=== PATIENT | male | born 1935 | race Caucasian/White ===

== ENCOUNTER 2017-06-18 09:47 | Observation (INO) | payer MEDICARE, OTHER ==
[2017-06-18 11:35] LABS: Troponin I 0.119 ng/mL (< 0.028)
[2017-06-18] MEDS ORDERED: HYDROcodone/Acetaminophen 5/325 mg Tablet PO PRN (12:06)
[2017-06-18] MEDS ORDERED: Acetaminophen 325 MG TAB PO PRN (12:06)
[2017-06-18] MEDS ORDERED: Sodium Chloride 0.65% Nasal 44 ML BOT EA NARE PRN (12:06)
[2017-06-18] MEDS ORDERED: Eucerin (Mineral Oil/Petrolatum,White) 30 gm Jar TOP PRN (12:06)
[2017-06-18] MEDS ORDERED: Ondansetron HCl/PF 4 MG/2 ML Vial IVP PRN (12:06)
[2017-06-18] MEDS ORDERED: Milk Of Magnesia 30 ML UDCUP PO PRN (12:06)
[2017-06-18] MEDS ORDERED: Zolpidem Tartrate 5 MG TAB PO PRN (12:06)
[2017-06-18] MEDS ORDERED: Artificial Tears 18 DROP/0.9 ML EA EYE PRN (12:06)
[2017-06-18] MEDS ORDERED: Mag-Al 1200 mg/1200 mg/30 ML UDCUP PO PRN (12:06)
[2017-06-18] MEDS ORDERED: Diabetic Tussin 200 MG/10 ML UDCUP PO PRN (12:06)
[2017-06-18] MEDS ORDERED: Loratadine 10 MG TAB PO PRN (12:06)
[2017-06-18] MEDS ORDERED: Ondansetron ODT 4 MG TAB PO PRN (12:06)
[2017-06-18] MEDS ORDERED: Loperamide HCl 2 MG CAP PO PRN (12:06)
[2017-06-18] MEDS ORDERED: Chloraseptic Spray 180 ml Bottle PO PRN (12:06)
[2017-06-18] MEDS ORDERED: Nitroglycerin 0.4 MG TAB (25 Tab Bottle) SL PRN (12:06)
[2017-06-18] MEDS ORDERED: hydrALAZINE 20 MG/ML VIAL SLOW IVP PRN (12:06)
[2017-06-18] MEDS ORDERED: Senokot 8.6 MG TAB PO PRN (12:06)
[2017-06-18 12:19] VITALS: BMI 27.2
--- NOTE | 2017-06-18 13:09 | HP ---
PRIMARY CARE PHYSICIAN: in [place]. REASON FOR ADMISSION: Transfer from [facility] for angina and elevated troponin. HISTORY OF PRESENT ILLNESS: An 82-year-old male who has underlying history of coronary artery disease, required CABG in the past as well as aortic valve replacement who is suffering from chronic stable angina for the last 6-7 months. This patient reports that he is following Dr. Dixon and Dr. Dixon did cardiac catheterization at [facility] about 3 weeks ago. At that time , patient was found with a new blockage in [place] coronary vessels with a patent graft as per family member. The patient also had recently stress test which showed normal EF. During that admission at [facility], after cardiac catheterization, his Imdur was increased to 60 mg p.o. daily and that was controlling his angina up until today. Today, he was coming from his home to [facility] for routine lab testing done. On the way, he was having severe substernal pain, heaviness in nature associated with nausea as well as radiating pain to back. It was about 8 /10 in intensity and that is why patient's son worried about heart attack and patient was taken to local [facility] where patient had electrocardiogram which did not show any STEMI, but patient had a slightly elevated indeterminant troponin and subsequently patient was planned for transfer to our hospital. This patient does report that he has followup appointment with Dr. Dixon on this Sunday for plan of care regarding his blockage. In the emergency room, this patient was given nitroglycerin, nitropatch and aspirin. After that, patient's pain completely subsided and when I saw this patient in our emergency room, he was pain free. REVIEW OF SYSTEMS: The following complete review of systems was negative, unless otherwise mentioned in the HPI or below: Constitutional: Weight loss or gain, ability to conduct usual activities. Skin: Rash, itching. Eyes: Double vision, pain. ENT/Mouth: Nose bleeding, neck stiffness, pain, tenderness. Cardiovascular: Palpitations, dyspnea on exertion, orthopnea. Respiratory: Shortness of breath, wheezing, cough, hemoptysis, fever or night sweats. Gastrointestinal: Poor appetite, abdominal pain, heartburn, nausea, vomiting, constipation, or diarrhea. Genitourinary: Urgency, frequency, dysuria, nocturia. Musculoskeletal: Pain, swelling. Neurologic/Psychiatric: Anxiety, depression. Allergy/Immunologic: Skin rash, bleeding tendency. Please see my HPI for pertinent positive and negative. All other review of systems reviewed and negative except as mentioned in the HPI. ALLERGIES: CODEINE SULFATE. CURRENT HOME MEDICATIONS: Lisinopril 20 mg p.o. daily, Plavix 75 mg p.o. daily , metoprolol 25 mg p.o. daily, Imdur 60 mg p.o. daily, Lipitor 40 mg p.o. daily , Zoloft 25 mg p.o. daily, multivitamin 1 tablet p.o. daily, aspirin 81 mg p.o. daily. PAST MEDICAL HISTORY: Coronary artery disease, required CABG in the past valvular heart disease required aortic valve replacement for aortic regurgitation, history of sick sinus syndrome, required pacemaker placement, hypertension, dyslipidemia. PAST PSYCHIATRIC HISTORY: Anxiety and depression. PAST SURGICAL HISTORY: Aortic valve replacement, CABG x3 vessel, cholecystectomy, hernia repair, right knee surgery, cardiac catheterization. FAMILY HISTORY: No strong family history of CAD, CVA or cancer. SOCIAL HISTORY: The patient drinks alcohol socially. He lives at home by himself. No history of tobacco, alcohol or illicit drug abuse. EMERGENCY ROOM COURSE: At [facility], patient is given aspirin 324 mg and nitropatch. PHYSICAL EXAMINATION: VITAL SIGNS: On arrival, blood pressure 127/68, pulse 63, respiratory rate 16, temperature 98.2, saturation 95% on room air, weight 83.9 kilograms. GENERAL: The patient is currently alert, awake, no acute distress. HEENT: Normocephalic, atraumatic. Eyes: Pupils round, reactive to light. Extraocular muscles intact. ENT: Oropharynx within normal limits. Moist mucous membranes, no oral lesion, no pharyngeal erythema, no exudate. NECK: Supple, no JVD, no thyromegaly, no carotid bruit, no jugular venous distention. LUNGS: Clear to auscultation without any rhonchi or rales. CARDIOVASCULAR: S1, S2 regular. No murmur, no gallop, no rub. CHEST WALL: The sternotomy scar noted as well as pacemaker in place. No point tenderness, no chest wall tenderness. ABDOMEN: Soft, bowel sounds present, nontender, nondistended. No organomegaly , no mass, no suprapubic tenderness. BACK: Unremarkable, no CVA tenderness. EXTREMITIES: Upper extremity passive movement of all joints are normal. Lower extremity, no edema. Good peripheral pulsation. SKIN: No skin rash. HEMATOLOGICAL: No lymphadenopathy. PSYCHIATRIC: Normal affect. SIGNIFICANT LABS: 1. EKG showing pacemaker rhythm. Chest x-ray based on my review, no acute cardiopulmonary process, borderline cardiomegaly, pulmonary vascular congestion. 2. CBC: WBC 4.0, hemoglobin 13.5, platelets 94. BMP shows sodium 139, potassium 3.9, chloride 107, carbon dioxide 23, BUN 24, creatinine 0.89, glucose 113, calcium 9.0. 3. LFT: AST 34, ALT 34, alkaline phosphatase 87, albumin 4.0. CK-MB 2.3, troponin I 0.112, then 0.119. 3. D-dimer 0.32. ASSESSMENT AND PLAN: 1. Chronic stable angina. This patient gets recurrent anginal pain. This is normally anginal pain for him and subsides in 3-5 minutes after nitroglycerin, but this time intensity of pain was more severe as well as for more prolonged required emergency room visit. Currently, patient has indeterminate troponin. The patient's EKG is pacemaker rhythm. Patient's family member requesting cardiology evaluation given he already has appointment with Dr. Dixon on coming Sunday. The patient already had cardiac catheterization done 3 weeks ago and found with a new blockage. We will consult Cardiology and further decision will defer to them. Meanwhile, we will continue the aspirin 81 mg p.o. daily, Plavix 75 mg p.o. daily and nitropatch q.8 hourly, Lipitor 40 mg p.o. at bedtime. 2. Check lipid profile for risk stratification and monitor on telemetry floor. 3. Coronary artery disease, required CABG x3 in past. The patient is currently on optimal medical therapy with aspirin, Plavix, beta malcolm, AKBAR inhibitor, and statin therapy. Cardiology is consulted and we will defer further plan to them. 4. Dyslipidemia. We will check lipid profile and continue Lipitor 40 mg p.o. at bedtime. 5. Hypertension. Continue Lisinopril 20 mg p.o. daily, metoprolol 25 mg p.o. daily and nitropatch q.8 hourly. Upon discharge, we will resume Imdur 60 mg p.o. daily. 6. Anxiety and depression. Continue Zoloft 25 mg p.o. daily. 7. Thrombocytopenia. Etiology uncertain, but we will defer outpatient evaluation if needed. 8. Macrocytic anemia. We will start folic acid and vitamin B12 therapy while in hospital. 9. Elevated troponin. We will do serial cardiac enzymes x3 and likely related with angina. Cardiology already consulted. 10. Deep venous thrombosis prophylaxis not needed because we are expecting discharge in 24 hours. 11. Gastrointestinal prophylaxis, Pepcid 20 mg p.o. b.i.d. 12. Code status: The patient is FULL CODE. Patient's daughter is surrogate decision maker. Disposition plan based on clinical course. We are expecting patient's stay in hospital 24 hours. Further decision will defer to Cardiology. MTDD
--- NOTE | 2017-06-18 13:56 | CON ---
DATE OF CONSULTATION: 06/18/2017 REASON FOR CONSULTATION: Recurrent chest pressure HISTORY OF PRESENT ILLNESS: Mr. Brett Puri is a very pleasant 82-year-old patient of Dr. Mo lobo. He has a history of coronary bypass grafting in 2016. The patient has had some chest pressur e intermittently. He has had chest soreness associated with the sternum, but that is really a differ ent sensation from the pressure he gets intermittently. He said sometimes as soon as he lays down, h e gets pressure in his chest, but other times it occurs randomly and sporadically. He did [facility] and was found to have patent internal mammary to the LAD, patent diagonal graft, patent saphenous vein graft to the distal circumflex. From reading the notes, it sounds like there is some of the proximal circumflex that ma y not be ideally perfused, although it looked like it was a suboptimal situation for interventional t herapy. He was doing well today, but he started having chest pressure at rest despite medications. He came here to the hospital and received additional medication and is now pain free now. He feels w ell now. MEDICATIONS: 1. Aspirin. 2. Metoprolol. 3. Isosorbide. 4. Atorvastatin. 5. Lisinopril. 6. Plavix. 7. He does not have sublingual nitroglycerin if needed. ALLERGIES: None known. SOCIAL HISTORY: No alcohol or tobacco. He has a family who is very supportive of him. REVIEW OF SYSTEMS: CONSTITUTIONAL: No significant weight gain or loss. VISION: No changes. HEARING: No changes. PULMONARY: No cough or wheezing. GASTROINTESTINAL: No nausea, vomiting, diarrhea. SKIN: No rashes. NEUROLOGIC: No unilateral weakness or numbness. PSYCHIATRIC: No unusual depression or anxiety. HEMATOLOGIC: No unusual bruising. GENITOURINARY: No burning with urination. PHYSICAL EXAMINATION: GENERAL: This is a pleasant elderly gentleman, 82 years of age, resting comfortably now, no complain ts. VITAL SIGNS: Blood pressure 136/74, pulse 70 regular. HEENT: Eyes; sclerae nonicteric. Mouth; mucous membranes moist. NECK: Supple, no lymphadenopathy. LUNGS: Clear, no wheezing, rales or rhonchi. CARDIAC: Normal S1, normal S2. There is no murmur, rub or gallop. ABDOMEN: Soft, nontender. EXTREMITIES: No clubbing or cyanosis. There is no edema. The pedal pulses on the right foot are normal, but the left are diminished. LABORATORY AND X-RAY FINDINGS: EKG; it is an atrial paced ventricular paced rhythm. ASSESSMENT: 1. Previous coronary artery bypass grafting with recurrent anginal episodes, patent graft to the lef t anterior descending, diagonal and distal circumflex. 2. Dual chamber pacemaker in place. 3. Peripheral vascular disease with mild symptoms, some left lower extremity discomfort, but not exe rtional. 4. Hypercholesterolemia on treatment. PLAN: 1. Continue current medical regimen. 2. We will add Ranexa. 3. Dr. Dixon to review the case to see whether any other intervention may be helpful. It would lik sowmya be helpful to add if needed nitrates if he has an anginal episode.
[2017-06-18] MEDS: Nitroglycerin 2% Ointment 1 INCH/1 GM Packet TOP SCH ×2 (14:26→22:35)
[2017-06-18 14:40] LABS: Troponin I 0.141 ng/mL (< 0.028)
[2017-06-18 18:05] LABS: Troponin I 0.137 ng/mL (< 0.028)
[2017-06-18] MEDS: Famotidine 20 MG TAB PO SCH (20:46)
[2017-06-18] MEDS ORDERED: Atorvastatin Calcium 40 MG TAB PO SCH (21:00)
[2017-06-19 05:22] LABS: Anion Gap 10 mmol/L (10-20); BUN (Urea Nitrogen) 18 mg/dL (8.4-25.7); Calc. Creatinine Clearance 79 mL/min (70-130); Calcium 9.1 mg/dL (7.8-10.44); Carbon Dioxide 27 mmol/L (23-31); Cardiac Risk 2.4 (Less than 4.5); Chloride 105 mmol/L (98-107); Cholesterol 73 mg/dl (< 200 Desired); Estimated GFR-MDRD 86; Glucose 107 mg/dL (83-110); HDL Cholesterol 30 mg/dL (>60 Neg Risk); LDL Cholesterol, Calculated 30 mg/dL; Potassium 4.3 mmol/L (3.5-5.1); Sodium 138 mmol/L (136-145); Triglycerides 66 mg/dL (Less than 150)
[2017-06-19 05:38] LABS: #Eosinphils 0.2 thou/uL (0.0-0.7); #Lymphocytes 1.3 thou/uL (1.20-3.40); #Monocytes 0.4 thou/uL (0.11-0.59); #Neutrophils 2.4 thou/uL (1.40-6.50); %Basophils 0.3 % (0.0-1.0); %Lymphocytes 30.5 % (21.0-51.0); %Monocytes 8.4 % (0.0-10.0); %Neutrophils 56.9 % (42.0-75.0); Hemoglobin 12.5 g/dL (14.0-18.0); MDiff Complete? YES; Macrocytosis SLIGHT = 6-15 cells (100X) (0-5/hpf); Mean Corpuscular HGB CONC 34.7 g/dL (32.0-36.0); PLT Morphology Comment Appears Decreased; Platelet Count 100 thou/uL (130-400); RBC Distribution Width 12.8 % (11.5-14.5); Red Blood Cell (RBC) Count 3.59 mill/uL (4.70-6.10); White Blood Cell (WBC) Count 4.1 thou/uL (4.8-10.8)
[2017-06-19] MEDS: Nitroglycerin 2% Ointment 1 INCH/1 GM Packet TOP SCH ×3 (06:13→14:41)
[2017-06-19] MEDS: Famotidine 20 MG TAB PO SCH (08:48)
[2017-06-19] MEDS ORDERED: Clopidogrel Bisulfate 75 MG TAB PO SCH (09:00)
[2017-06-19] MEDS ORDERED: Lisinopril 20 MG TAB PO SCH (09:00)
[2017-06-19] MEDS ORDERED: Metoprolol Tartrate 25 MG TAB PO SCH (09:00)
--- NOTE | 2017-06-19 09:02 | PDOC.PN ---
- Subjective Encounter Start Date: 06/19/17 Encounter Start Time: 07:30 -: old records requested/rev Patient seen and examined. No new complaints. No overnight events - Objective Resuscitation Status: Resuscitation Status FULL:Full Resuscitation MAR Reviewed: Yes Vital Signs & Weight: Vital Signs (12 hours) Temp Pulse Resp BP Pulse Ox 06/19/17 08:00 98.3 F 68 16 06/19/17 07:43 98.3 F 68 16 137/72 95 06/19/17 03:56 98.3 F 81 20 175/82 H 96 Weight Weight 183 lb 8 oz I&O: 06/18/17 06/19/17 06/20/17 06:59 06:59 06:59 Intake Total 1005 Output Total 2 Balance 1003 Result Diagrams: 06/19/17 04:49 06/19/17 04:49 EKG Reviewed by me: Yes (nsr) Phys Exam - Physical Examination Constitutional: NAD HEENT: PERRLA, moist MMs, sclera anicteric Neck: no JVD, supple Respiratory: no wheezing, no rales, no rhonchi Cardiovascular: RRR, no significant murmur, no rub Gastrointestinal: soft, non-tender, no distention, positive bowel sounds Musculoskeletal: no edema, pulses present Neurological: non-focal, normal sensation, moves all 4 limbs Psychiatric: normal affect, A&O x 3 Skin: no rash, normal turgor Dx/Plan (1) Angina pectoris Code(s): I20.9 - ANGINA PECTORIS, UNSPECIFIED Status: Acute (2) Elevated troponin Code(s): R74.8 - ABNORMAL LEVELS OF OTHER SERUM ENZYMES Status: Acute (3) Anxiety and depression Code(s): F41.8 - OTHER SPECIFIED ANXIETY DISORDERS Status: Chronic (4) CAD (coronary artery disease) Code(s): I25.10 - ATHSCL HEART DISEASE OF [place] CORONARY ARTERY W/O ANG PCTRS Status: Chronic (5) Dyslipidemia Code(s): E78.5 - HYPERLIPIDEMIA, UNSPECIFIED Status: Chronic (6) H/O aortic valve replacement Code(s): Z95.2 - PRESENCE OF PROSTHETIC HEART VALVE Status: Chronic (7) Hx of CABG Status: Chronic (8) Hypertension Code(s): I10 - ESSENTIAL (PRIMARY) HYPERTENSION Status: Chronic (9) Macrocytic anemia Code(s): D53.9 - NUTRITIONAL ANEMIA, UNSPECIFIED Status: Chronic - Plan cont current plan of care, plan discussed w/ family * will add ranexa, pepcid, folic acid, vitamin B12 on discharge * medication reviewed as below * symptomatic treatment * stable for discharge if cardiology ok and echo done. Review of Systems - Review of Systems ENT: negative: Ear Pain, Ear Discharge, Nose Pain, Nose Discharge, Nose Congestion, Mouth Pain, Mouth Swelling, Throat Pain, Throat Swelling, Other Respiratory: negative: Cough, Dry, Shortness of Breath, Hemoptysis, SOB with Excertion, Pleuritic Pain, Sputum, Wheezing Cardiovascular: negative: chest pain, palpitations, orthopnea, paroxysmal nocturnal dyspnea, edema, light headedness, other Gastrointestinal: negative: Nausea, Vomiting, Abdominal Pain, Diarrhea, Constipation, Melena, Hematochezia, Other Genitourinary: negative: Dysuria, Frequency, Incontinence, Hematuria, Retention , Other Musculoskeletal: negative: Neck Pain, Shoulder Pain, Arm Pain, Back Pain, Hand Pain, Leg Pain, Foot Pain, Other Skin: negative: Rash, Lesions, Anton, Bruising, Other - Medications/Allergies Allergies/Adverse Reactions: Allergies Allergy/AdvReac Type Severity Reaction Status Date / Time No Known Allergies Allergy Unverified 06/18/17 13:18 Medications: Current Medications Acetaminophen (Tylenol) 650 mg PO Q4H PRN PRN Reason: Headache/Fever or Pain Hydrocodone Bitart/Acetaminophen (Vicco 5/325) 1 tab PO Q4H PRN PRN Reason: Moderate Pain (4-6) Al Hydroxide/Mg Hydroxide (Maalox) 30 ml PO Q6H PRN PRN Reason: Heartburn or Indigestion Artificial Tears (Tears Naturale) 0 drop EA EYE PRN PRN PRN Reason: Dry Eyes Aspirin (Aspirin Chewable) 81 mg PO DAILY [facility] Last Admin: 06/19/17 08:48 Dose: 81 mg Atorvastatin Calcium (Lipitor) 40 mg PO HS [facility] Last Admin: 06/18/17 20:46 Dose: 40 mg Clopidogrel Bisulfate (Plavix) 75 mg PO QAM [facility] Last Admin: 06/19/17 08:48 Dose: 75 mg Famotidine (Pepcid) 20 mg PO BID [facility] Last Admin: 06/19/17 08:48 Dose: 20 mg Guaifenesin (Robitussin Sf) 200 mg PO Q4H PRN PRN Reason: Cough Hydralazine HCl (Apresoline) 10 mg SLOW IVP Q4H PRN PRN Reason: Systolic BP > 180 Lisinopril (Zestril) 20 mg PO DAILY [facility] Last Admin: 06/19/17 08:48 Dose: 20 mg Loperamide HCl (Imodium) 2 mg PO PRN PRN PRN Reason: Diarrhea/Loose Stools Loratadine (Claritin) 10 mg PO DAILYPRN PRN PRN Reason: Sinus Symptoms Magnesium Hydroxide (Milk Of Magnesium) 30 ml PO DAILYPRN PRN PRN Reason: Constipation Metoprolol Tartrate (Lopressor) 25 mg PO DAILY [facility] Last Admin: 06/19/17 08:48 Dose: 25 mg Mineral Oil/White Petrolatum (Eucerin Cream) 0 gm TOP BIDPRN PRN PRN Reason: Dry Skin Nitroglycerin (Nitro-Bid 2% Ointment) 0.5 inch TOP Q8HR [facility] Last Admin: 06/19/17 06:28 Dose: Not Given Nitroglycerin (Nitrostat) 0.4 mg SL Q5MIN PRN PRN Reason: Chest Pain Ondansetron HCl (Zofran Odt) 4 mg PO Q6H PRN PRN Reason: Nausea/Vomiting Ondansetron HCl (Zofran) 4 mg IVP Q6H PRN PRN Reason: Nausea/Vomiting Phenol (Chloraseptic [place] 180 Ml Bot) 0 ml PO PRN PRN PRN Reason: Sore Throat Ranolazine (Ranexa) 500 mg PO BID [facility] Last Admin: 06/19/17 08:48 Dose: 500 mg Senna (Senokot) 2 tab PO HSPRN PRN PRN Reason: Constipation Sertraline HCl (Zoloft) 25 mg PO DAILY [facility] Last Admin: 06/19/17 08:48 Dose: 25 mg Sodium Chloride ([place] Nasal [place] 0.65%) 0 ml EA NARE QIDPRN PRN PRN Reason: Nasal Congestion Sodium Chloride (Flush - Normal Saline) 10 ml IVF Q12HR [facility] Last Admin: 06/19/17 08:48 Dose: 10 ml Sodium Chloride (Flush - Normal Saline) 10 ml IVF PRN PRN PRN Reason: Saline Flush Last Admin: 06/18/17 20:46 Dose: 10 ml Zolpidem Tartrate (Ambien) 5 mg PO HSPRN PRN PRN Reason: Insomnia
--- NOTE | 2017-06-19 11:15 | DIS ---
DATE OF ADMISSION: 06/18/2017 DATE OF DISCHARGE: 06/19/2017 PRIMARY CARE PHYSICIAN: Dr. Fields in [facility]. DISCHARGE DISPOSITION: Home. PRIMARY DISCHARGE DIAGNOSIS: Angina pectoris, elevated troponin. SECONDARY DISCHARGE DIAGNOSES: Anxiety and depression, coronary artery disease, history of coronary artery bypass grafting, history of aortic valve replacement, dyslipidemia, hypertension, macrocytic a nemia. PRIMARY PROCEDURE/OPERATION: None. RADIOLOGICAL INVESTIGATIONS: Chest x-ray normal. SIGNIFICANT LABORATORY DATA: WBC 4.1, hemoglobin 12.5, platelet 100. Sodium 138, potassium 4.3, cre atinine 0.85, LDL 30. Troponin 0.119. DISCHARGE MEDICATIONS: Aspirin 81 mg p.o. daily, Lipitor 40 mg p.o. daily, Plavix 75 mg p.o. daily, vitamin B12 1000 mcg p.o. daily, Pepcid 20 mg p.o. b.i.d., folic acid 1 mg p.o. daily, Imdur 60 mg p. o. daily, lisinopril 20 mg p.o. at bedtime, Toprol-XL 25 mg p.o. daily, multivitamin 1 tablet p.o. da elizabeth, Ranexa 500 mg p.o. b.i.d., Zoloft 25 mg p.o. daily. CONTRAINDICATIONS: None. CODE STATUS: FULL CODE. INPATIENT CONSULTANTS: Cardiology, Dr. Gastelum and Dr. Dixon was consulted while in hospital. TEST RESULTS PENDING ON DISCHARGE: Echocardiography result. DISCHARGE PLAN: Post hospital, the patient will follow up with primary care physician and primary ca rdiologist. HOSPITAL COURSE: An 82-year-old male who was admitted by me. Please see my HPI for further detail. He was coming for routine lab check [facility] the [facility]. On the way, he was having substernal chest pa in which is typical for his angina. This time, angina was more prolonged and more intense and that i s why he required to go to the local emergency room where he had routine check including cardiogram a nd chest x-ray which was unremarkable. Troponin was slightly elevated with indeterminate range. Pat ient was transferred to our emergency room. We did serial cardiac enzyme and his troponin remained i n stable range. We consulted Cardiology and Cardiology added Ranexa. Dr. Dixon is going to see thi s patient later on today. Echocardiography will be done later on today. If Cardiology okay and echo is done, then this patient is medically stable for discharge today. The patient is seen and examined at bedside today. Please see my progress note from today for furthe r detail. This patient already had a cardiac catheterization 3 weeks ago at [facility].
[2017-06-19 15:11] VITALS: BP 161/70; TEMP 98.4
--- NOTE | 2017-06-19 19:55 | PDOC.CTH ---
Cardiology Progress Note - Subjective He is doing better. He states he has not had pain since admission. he was started on Ranexa last evening and is feeling well. - Objective Vital Signs Temp Pulse Resp BP Pulse Ox 06/19/17 15:05 98.4 F 67 16 161/70 H 94 L 06/19/17 11:17 98.5 F 77 18 151/72 H 95 06/19/17 08:00 98.3 F 68 16 Weight 183 lb 8 oz 06/18/17 06/19/17 06/20/17 06:59 06:59 06:59 Intake Total 1005 50 Output Total 2 Balance 1003 50 - Physical Examination General/Neuro: alert & oriented x3, NAD Neck: no JVD present Lungs: CTA, unlabored respirations Heart: RRR Abdomen: NT/ND Extremities: other: (no edema.) - Telemetry Telemetry Rhythm: NSR - Labs Result Diagrams: 06/19/17 04:49 06/19/17 04:49 Troponin/CKMB Troponin I 0.137 ng/mL (< 0.028) H 06/18/17 17:16 - Assessment/Plan 1. Stable chronic angina 2. CAD 3. S/p CABG PLAN: - We had a long conversation about doing intervention to his LCx versus continuing medical therapy. He tells me he wants to continue with up titration of medical therapy. He had several questions and they were answered. His daughter was in the room with him as well. Preeti get him samples of ranexa and [facility]. - Will follow up in 1 month and will decide on continuing uptitration versus stenting if still not controlled. - he may be discharged home anytime from cardiac perspective.
== END 2017-06-19 17:10 | disposition home or self-care (01) ==
LOC: ERS 09:47 → 2SW 11:24 → INTOOBSV 11:24
PROVIDERS: ADMIT Internal Medicine; ATTEND Internal Medicine
DX: I25.119 Atherosclerotic heart disease of native coronary artery with unspecified angina pectoris (principal); F41.8 Other specified anxiety disorders; E78.5 Hyperlipidemia, unspecified; I10 Essential (primary) hypertension; D50.9 Iron deficiency anemia, unspecified; D69.6 Thrombocytopenia, unspecified; I73.9 Peripheral vascular disease, unspecified; R79.89 Other specified abnormal findings of blood chemistry; Z95.1 Presence of aortocoronary bypass graft; Z95.2 Presence of prosthetic heart valve; Z88.5 Allergy status to narcotic agent; Z79.82 Long term (current) use of aspirin; Z79.899 Other long term (current) drug therapy; Z98.890 Other specified postprocedural states
CPT/HCPCS: 80048; 80061; 84484; 85025; 93005; 99285; G0378; 36415; A4216

== ENCOUNTER 2019-04-25 05:48 | Inpatient (IN) | payer MEDICARE ==
[2019-04-25] MEDS ORDERED: Nitroglycerin 50 MG/250 ML BOT 250 ML ONE (06:33)
[2019-04-25] MEDS ORDERED: Fentanyl 250 MCG/5 ML VIAL ONE (06:33)
[2019-04-25] MEDS ORDERED: Albuterol Sulfate HFA (OR ONLY) ONE (06:34)
[2019-04-25] MEDS ORDERED: Heparin 5,000 UNITS/ML VIAL ONE (06:53)
[2019-04-25] MEDS ORDERED: Protamine Sulfate 50 MG/5 ML VIAL ONE (06:53)
[2019-04-25] MEDS ORDERED: Sodium Chloride 0.9% 20 ML ONE (06:53)
[2019-04-25 06:55] LABS: Hemoglobin 11.7 g/dL (14.0-18.0); Mean Corpuscular HGB CONC 35.1 g/dL (32.0-36.0); Mean Corpuscular Hemoglobin 38.5 pg (27.0-31.0); Mean Platelet Volume 9.1 fL (7.4-10.4); Platelet Count 118 thou/uL (130-400); RBC Distribution Width 12.3 % (11.5-14.5); Red Blood Cell (RBC) Count 3.04 mill/uL (4.70-6.10); White Blood Cell (WBC) Count 4.1 thou/uL (4.8-10.8)
[2019-04-25 07:07] LABS: Anion Gap 11 mmol/L (10-20); BUN (Urea Nitrogen) 15 mg/dL (8.4-25.7); Calc. Creatinine Clearance 53 mL/min (70-130); Calcium 8.8 mg/dL (7.8-10.44); Carbon Dioxide 26 mmol/L (23-31); Chloride 106 mmol/L (98-107); Estimated GFR-MDRD 56; Glucose 108 mg/dL (83-110); Potassium 4.1 mmol/L (3.5-5.1); Sodium 139 mmol/L (136-145)
[2019-04-25 07:19] LABS: #Basophils 0.1 thou/uL (0.0-0.2); #Eosinphils 0.1 thou/uL (0.0-0.7); #Lymphocytes 1.2 thou/uL (1.20-3.40); #Monocytes 0.6 thou/uL (0.11-0.59); #Neutrophils 2.2 thou/uL (1.40-6.50); %Basophils 1.6 % (0.0-1.0); %Eosinophils 3.5 % (0.0-10.0); %Lymphocytes 28.7 % (21.0-51.0); %Monocytes 13.4 % (0.0-10.0); %Neutrophils 52.8 % (42.0-75.0); MDiff Complete? YES; Macrocytosis SLIGHT = 6-15 cells (100X) (0-5/hpf); Platelet Morphology Comment Appears Decreased
[2019-04-25] MEDS ORDERED: SUGAMMADEX SODIUM 500 MG/5 ML VIAL ONE (07:38)
--- NOTE | 2019-04-25 08:32 | RAD ---
FRONTAL RADIOGRAPH CHEST: DATE: 04/25/2019. COMPARISON: 06/18/2017. HISTORY: Preoperative patient. FINDINGS: Stable midline sternotomy wires, mediastinal clips, and dual-lead transvenous pacing device. No pneu mothorax, pleural fluid, focal consolidation, or alveolar edema. There is atherosclerotic calcificat ion in the aortic arch. IMPRESSION: Chronic findings as detailed above. No acute findings. POS: TPC
[2019-04-25] MEDS ORDERED: Promethazine HCl 25 MG/ML VIAL SLOW IVP PRN (09:53)
[2019-04-25] MEDS ORDERED: Promethazine HCl 25 MG/ML VIAL IM PRN ×2 (09:53→12:13)
[2019-04-25] MEDS ORDERED: Ondansetron HCl/PF 4 MG/2 ML Vial IVP PRN (09:53)
[2019-04-25] MEDS: Sodium Chloride 0.9% 1,000 ML IV SCH ×2 (12:00→19:57)
--- NOTE | 2019-04-25 12:06 | OP ---
DATE OF PROCEDURE: 04/25/2019 PREOPERATIVE DIAGNOSIS: Symptomatic left carotid stenosis. POSTOPERATIVE DIAGNOSIS: Symptomatic left carotid stenosis. PROCEDURE PERFORMED: Left carotid endarterectomy with patch angioplasty. ANESTHESIA: General endotracheal, Dr. Kaykay Ybarra ESTIMATED BLOOD LOSS: 100. DRAINS: None. SPECIMENS: None. DESCRIPTION OF PROCEDURE: After operative consent was obtained, the patient was brought to the operating room and placed in supine position on the operating room table. Appropriate central line and monitors were placed and general endotracheal anesthesia was induced. The left neck was prepped and draped in usual sterile fashion. Skin incision was made along the anterior border of the sternocleidomastoid. The sternocleidomastoid was mobilized. The facial vein branches were divided between clips and ties. The internal, common, and external carotid arteries were carefully dissected free. The patient was systemically heparinized. After 3 minutes, internal, common, and external carotid arteries were clamped. Incision was made on the common carotid artery, extended through the bulb on the internal carotid artery distal to the plaque. A 10-[place] shunt was placed and antegrade flow re-established. Endarterectomy was performed beginning on the common carotid artery extending through the bulb on the internal carotid artery. Good tapered distal endpoint was obtained. Eversion endarterectomy was performed of the external carotid artery. Arteries were back bled and flushed with heparinized saline. The artery was copiously irrigated and medial fibers were debrided. Bovine pericardial patch was sewn in place with running 6-0 Prolene suture. Prior to completion of patch suture line, shunt was removed and arteries were again back bled and flushed with heparinized saline. Patch suture line was completed and antegrade flow re-established up the external carotid artery for 10 seconds followed by the internal carotid artery. Protamine was administered. There was palpable pulse in the distal internal carotid artery. Hemostasis was ensured. Wounds were irrigated and closed in layers and Dermabond applied to skin. The patient was awakened and neurologically intact at completion. The patient tolerated the procedure well, was extubated, transferred to the recovery room in stable condition. Job ID: [id number]
[2019-04-25] MEDS ORDERED: Nitroglycerin 50 MG/250 ML BOT 250 ML IVPB PRN (12:13)
[2019-04-25] MEDS ORDERED: hydrALAZINE 20 MG/ML VIAL SLOW IVP PRN (12:13)
[2019-04-25] MEDS ORDERED: Ondansetron PF 4 MG/2 ML Vial IVP PRN (12:13)
[2019-04-25] MEDS ORDERED: Phenylephrine 10 MG/NS 250 ML 250 ML IVPB PRN (12:13)
[2019-04-25] MEDS ORDERED: Acetaminophen 325 MG TAB PO PRN (12:13)
[2019-04-25] MEDS ORDERED: Fentanyl 100 MCG/2 ML VIAL SLOW IVP PRN ×2 (12:13)
[2019-04-25] MEDS ORDERED: Rocuronium Bromide 10 MG/ML (10ML VIAL) ONE (12:36)
[2019-04-25] MEDS ORDERED: ePHEDrine/0.9% NaCl/PF SYRINGE 50 mg/10 ml ONE (12:36)
[2019-04-25] MEDS ORDERED: PROPOFOL 200 MG/20 ML VIAL ONE (12:36)
[2019-04-25] MEDS ORDERED: Glycopyrrolate 0.2 MG/ML 5 ML SYRINGE ONE (12:36)
[2019-04-25] MEDS ORDERED: Ondansetron PF 4 MG/2 ML Vial ONE (12:36)
[2019-04-25] MEDS ORDERED: Dexamethasone 20 MG/5 ML VIAL ONE (12:36)
[2019-04-25 13:41] VITALS: BMI 28.0
[2019-04-25] MEDS: CEFAZOLIN 2 GM in Premix Bag 1 BAG IVPB SCH ×2 (14:00→21:05)
[2019-04-25] MEDS ORDERED: Lisinopril 20 MG TAB PO SCH (21:00)
[2019-04-25] MEDS ORDERED: Atorvastatin Calcium 40 MG TAB PO SCH (21:00)
[2019-04-26] MEDS: CEFAZOLIN 2 GM in Premix Bag 1 BAG IVPB SCH (05:48)
[2019-04-26] MEDS: Sodium Chloride 0.9% 1,000 ML IV SCH (08:11)
[2019-04-26] MEDS ORDERED: Aspirin Chewable 81 MG TAB PO SCH (09:00)
[2019-04-26] MEDS ORDERED: Clopidogrel Bisulfate 75 MG TAB PO SCH (09:00)
[2019-04-26] MEDS ORDERED: Multivitamin W/ Minerals 1 TAB PO SCH (09:00)
[2019-04-26 09:54] VITALS: TEMP 97.9
--- NOTE | 2019-04-29 10:28 | EKG ---
Test Reason : PREOP Blood Pressure : / mmHG Vent. Rate : 063 BPM Atrial Rate : 063 BPM P-R Int : 082 ms QRS Dur : 164 ms QT Int : 496 ms P-R-T Axes : 033 -77 064 degrees QTc Int : 507 ms AV sequential or dual chamber electronic pacemaker Confirmed by SHIRA CACERES (2) on 04/29/2019 10:28:17 AM Referred By: NADIA Confirmed By:SHIRA CACERES
--- NOTE | 2019-04-29 14:59 | DIS ---
DATE OF ADMISSION: 04/25/2019 DATE OF DISCHARGE: 04/26/2019 DIAGNOSIS: Symptomatic left carotid stenosis. PROCEDURE PERFORMED: Left carotid endarterectomy with patch angioplasty. DISCHARGE MEDICATIONS: Unchanged from his home regimen. DESCRIPTION OF HOSPITAL STAY: Mr. Puri was brought in for elective carotid endarterectomy. He has done well and being discharged to home to follow up with me in 2 weeks. Discharge medications are unchanged. Job ID: [id number]
== END 2019-04-26 08:20 | disposition home or self-care (01) | DRG 39 ==
LOC: SURG A 05:48 → CCU 10:36
PROVIDERS: ADMIT Thoracic Surgery (Cardiothoracic Vascular Surgery); ATTEND Thoracic Surgery (Cardiothoracic Vascular Surgery)
PROC: 03CJ0ZZ Extirpation of Matter from Left Common Carotid Artery, Open Approach (ICD-10-PCS; principal; 2019-04-25)
PROC: 03UJ0KZ Supplement Left Common Carotid Artery with Nonautologous Tissue Substitute, Open Approach (ICD-10-PCS; 2019-04-25)
DX: I65.22 Occlusion and stenosis of left carotid artery (principal); I10 Essential (primary) hypertension; E78.2 Mixed hyperlipidemia; I25.10 Atherosclerotic heart disease of native coronary artery without angina pectoris; Z79.82 Long term (current) use of aspirin; Z86.73 Personal history of transient ischemic attack (TIA), and cerebral infarction without residual deficits; Z95.1 Presence of aortocoronary bypass graft; Z95.2 Presence of prosthetic heart valve; Z88.5 Allergy status to narcotic agent; Z87.891 Personal history of nicotine dependence
CPT/HCPCS: 36415; 71045; 80048; 85025; 93005; 93010; J0690; J1100; J1644; J2405; J2704; J2720; J3010

== ENCOUNTER 2019-10-10 18:50 | Inpatient (IN) | payer MEDICARE ==
[2019-10-10] MEDS ORDERED: Acetaminophen 325 MG TAB PO PRN (22:03)
[2019-10-10] MEDS ORDERED: Senokot S 8.6-50 MG TAB PO PRN (22:03)
[2019-10-10 22:08] VITALS: BMI 27.5
[2019-10-10 22:47] LABS: Hemoglobin 9.6 g/dL (14.0-18.0); Mean Corpuscular HGB CONC 33.8 g/dL (32.0-36.0); Mean Corpuscular Hemoglobin 35.6 pg (27.0-31.0); Mean Platelet Volume 10.8 fL (7.4-10.4); Platelet Count 65 thou/uL (130-400); RBC Distribution Width 16.2 % (11.5-14.5); Red Blood Cell (RBC) Count 2.69 mill/uL (4.70-6.10); White Blood Cell (WBC) Count 4.3 thou/uL (4.8-10.8)
[2019-10-10 22:55] LABS: Anion Gap 13 mmol/L (10-20); BUN (Urea Nitrogen) 20 mg/dL (8.4-25.7); Calc. Creatinine Clearance 45 mL/min (70-130); Calcium 8.6 mg/dL (7.8-10.44); Carbon Dioxide 22 mmol/L (23-31); Chloride 104 mmol/L (98-107); Estimated GFR-MDRD 52; Glucose 128 mg/dL (83-110); Potassium 4.6 mmol/L (3.5-5.1); Sodium 134 mmol/L (136-145)
[2019-10-10 23:09] LABS: Band 17 % (5-11); Lymphocytes 23 % (21-51); MDiff Complete? YES; Macrocytosis SLIGHT = 6-15 cells (100X) (0-5/hpf); Metamyelocyte 2 % (0-0); Monocytes 6 % (0-10); Neutrophil 51 % (42-75); Platelet Morphology Comment Appears Decreased
[2019-10-10 23:23] LABS: CKMB 1.3 ng/mL (0-6.6)
[2019-10-10] MEDS ORDERED: Nitroglycerin 0.4 MG TAB 1 EACH SL PRN (23:57)
--- NOTE | 2019-10-11 00:49 | HP ---
PRIMARY CARE PHYSICIAN: Dr. Driscoll in [place], director of strategic sourcing is Dr. Dixon CHIEF COMPLAINT: Chest pain. HISTORY OF PRESENT ILLNESS: Mr. Puri is an 84-year-old man who reported to the emergency room in [place] today with worsening chest pain. Reports he has had this pain for months, worse within the last several days and so he has been seeing Dr. Driscoll and Dr. Driscoll sent him to the emergency room for admission. Because his director of strategic sourcing was in [place], they requested to transfer to this facility. The patient was also found to be anemic with a hemoglobin of 8. Decision was made to transfuse 1 unit of packed red blood cells. Given aspirin and then sent him over here. His troponin evidently was higher than normal. It was over 1, so we are rechecking here to see how that compares to our values in this laboratory. The last time it was checked in 2007, he had indeterminate trop x4, 0.112. In April of 2019, he had a left carotid endarterectomy with patch angioplasty. Dr. Dixon's note in June of 2017, has a discussion about some intervention to his LCX versus continuing medical therapy and at that time he told him that he wanted to continue with the titration of medical therapy. The patient tells me that Dr. Driscoll had talked to Dr. Dixon this week and they have taken him off his Plavix. He reports that his hemoglobin has been on the lower side and they are not sure why he had blood work drawn. He denies any dark stools. Denies any bright red blood after bowel movements. Reports that Dr. Driscoll has taken a guaiac and sent it off and that was also negative. So they are not sure why his hemoglobin has dropped. I suspect this is probably why he was taken off the Plavix. PAST MEDICAL HISTORY: Pertinent for hypertension, Parkinson's, coronary artery disease, carotid artery stenosis, peripheral vascular disease, history of a TIA and aortic insufficiency. He was transferred from [place] to our telemetry unit. REVIEW OF SYSTEMS: The patient reports chest pain. Reports shortness of breath. Denies any upper respiratory. Denies runny nose, cough. Denies fever or chills. Denies abdominal pain. Denies nausea, vomiting, or diarrhea. All systems were reviewed and are negative unless mentioned above or in HPI. HOME MEDICATIONS: Still need to be reconciled from our records: 1. Atorvastatin 40 mg p.o. once daily. 2. Aspirin 81 mg p.o. once daily. 3. Vitamin B12 1000 mcg 1 tablet once a day. 4. He was on Plavix 75, but he reports that Dr. Dixon took him off that. 5. Isosorbide 30 mg extended release 1 tab in the morning. 6. Lisinopril 20 mg tablet once a day. 7. Metoprolol 25 mg p.o. once a day. 8. Ranexa 1000 mg extended release b.i.d. 9. Nitroglycerin 0.4 sublingual p.r.n. 10. Multivitamin x1. PAST MEDICAL HISTORY: Please see HPI. PAST SURGICAL HISTORY: Has a pacemaker in 2017, AVR and CABG x3 in 2016. FAMILY HISTORY: No pertinent family history obtained. SOCIAL HISTORY: He is a former smoker. Denies any drugs or alcohol. ALLERGIES: TYLENOL WITH CODEINE. HE BELIEVES IT IS THE CODEINE THAT GIVES HIM THE REACTION. PHYSICAL EXAMINATION: VITAL SIGNS: Temp is 99, pulse is 88, respiratory rate is 16, pO2 sats are 97% on room air, blood pressure is 122/58. CONSTITUTIONAL: The patient was sitting on the edge of the bed on arrival. He had received some help with his hospital gown and he was able to maneuver himself back into bed. He is alert and oriented to person, place, and time. He is able to answer questions about recent medical history. HEAD: Atraumatic and normocephalic. Eyes, pupils are equally round and reactive to light. Extraocular muscles are intact. ENT: Mouth exam is normal. Mucous membranes are moist. NECK: Trachea is midline. No tenderness. RESPIRATORY: Chest, breath sounds are clear. Chest expansion is equal. CARDIOVASCULAR: Regular heart rate and rhythm. No murmurs were auscultated. ABDOMEN: Nontender. Bowel sounds are heard. BACK: Normal range of motion. No tenderness. EXTREMITIES: Upper extremities, normal range of motion. Motor strength is normal. Radial pulses are normal. Lower extremities, strength is normal. Pedal pulses are normal. No edema is noted. NEUROLOGIC: The patient is oriented to person, place, and time. Speech is normal. There is a tremor noted at rest. SKIN: Warm and dry, normal in color. PLAN/ASSESSMENT: 1. Chest pain and NSTEMI, likely type 2. Elevated troponin likely due to demand r/t decreased hemaglobin. Patient has known CAD and Angina and has been medically managed for this in the past. We will restart the patient's home medications. We will ask Cardiology to consult. Dr. Burciaga is on-call this weekend. Dr. Dixon is his normal director of strategic sourcing. 2. We will trend troponins. We have ordered one on arrival here. We will check another one in 3 hours. Keep him on a heart monitor. 3. Anemia. Patient's hemoglobin in [place] was 8. He was given 1 unit of packed red blood cells, and currently it was rechecked and hemoglobin is now 9.6 with hematocrit at 28.4, and platelet count is 65. We will check iron studies and a ferritin level in the AM. It is possible GI may need to be consulted once lab values are back. Occult stool studies have been ordered. 4. History of Parkinson's. The patient reports that he does not take any medications for it. 5. History of hypertension. We will restart his home medications. 6. History of hyperlipidemia. We will restart his Lipitor. 7. The patient had a COVID-19 test in [place], which was negative. 8. Gastrointestinal prophylaxis has been started with Protonix daily. We are going to hold off on deep venous thrombosis prophylaxis other than sequential compression devices for now until more blood work is resulted. 9. The patient requests being a DNAR. Daughter is his surrogate decision maker. 10. Case discussed with Dr. Ivy who agrees with plan. Job ID: [id number] MTDD
[2019-10-11 03:01] LABS: Critical Call Chem Troponin I RESULT DECREASING; Troponin I 1.563 ng/mL (< 0.028)
[2019-10-11 04:48] LABS: #Eosinphils 0.1 thou/uL (0.0-0.7); #Lymphocytes 0.7 thou/uL (1.20-3.40); #Monocytes 0.3 thou/uL (0.11-0.59); %Basophils 0.2 % (0.0-1.0); %Eosinophils 2.4 % (0.0-10.0); %Lymphocytes 22.5 % (21.0-51.0); %Monocytes 9.6 % (0.0-10.0); %Neutrophils 65.3 % (42.0-75.0); Hemoglobin 8.8 g/dL (14.0-18.0); Mean Corpuscular HGB CONC 33.3 g/dL (32.0-36.0); Mean Corpuscular Hemoglobin 35.2 pg (27.0-31.0); Mean Platelet Volume 10.6 fL (7.4-10.4); Platelet Count 51 thou/uL (130-400); RBC Distribution Width 16.5 % (11.5-14.5); Red Blood Cell (RBC) Count 2.49 mill/uL (4.70-6.10); White Blood Cell (WBC) Count 3.1 thou/uL (4.8-10.8)
[2019-10-11 05:01] LABS: ALT (SGPT) 17 U/L (8-55); AST (SGOT) 26 U/L (5-34); Albumin 2.9 g/dL (3.4-4.8); Alkaline Phosphatase 91 U/L (40-110); Anion Gap 11 mmol/L (10-20); BUN (Urea Nitrogen) 18 mg/dL (8.4-25.7); Bilirubin, Total 1.7 mg/dL (0.2-1.2); Calc. Creatinine Clearance 50 mL/min (70-130); Calcium 7.9 mg/dL (7.8-10.44); Carbon Dioxide 21 mmol/L (23-31); Chloride 104 mmol/L (98-107); Estimated GFR-MDRD 59; Globulin 2.7 g/dL (2.4-3.5); Glucose 145 mg/dL (83-110); Iron 41 ug/dL (65-175); Iron 42 ug/dL (65-175); Iron Binding Capacity, Total 246 mcg/dL (261-462); Iron Binding Capacity, Total 254 mcg/dL (261-462); Potassium 4.3 mmol/L (3.5-5.1); Protein, Total 5.6 g/dL (5.8-8.1); Sodium 132 mmol/L (136-145)
[2019-10-11] MEDS: Aspirin Chewable 81 MG TAB PO SCH (08:14)
--- NOTE | 2019-10-11 19:59 | CON ---
DATE OF CONSULTATION: HISTORY OF PRESENT ILLNESS: The patient is an 84-year-old gentleman with a history of coronary artery disease, who presents with recurrent chest discomfort. The patient has a long history of coronary artery disease. In 2014, he underwent coronary artery bypass graft surgery x4 and aortic valve replacement. The patient, in 2018, underwent a followup evaluation with cardiac catheterization and was found to have a patent graft to the LAD, diagonal, and circumflex artery. He was placed on medical therapy. He was placed on Ranexa. The patient also has a history of cerebrovascular disease and subsequently undergone a carotid endarterectomy. The patient states he has chronic angina on a daily basis. He states it often responds to nitroglycerin tablets. The patient presented to the emergency room with recurrent chest discomfort. He states this occurs with and without exertion, and radiates to his back. PAST MEDICAL HISTORY: 1. Coronary artery disease. 2. Parkinson disease. 3. TIA. 4. Aortic valve replacement. 5. Hypertension. 6. Dyslipidemia. PAST SURGICAL HISTORY: Coronary artery bypass surgery and aortic valve replacement. He has had a carotid endarterectomy. SOCIAL HISTORY: Nonsmoker. ALLERGIES: CODEINE. MEDICATIONS: 1. Ranexa 1000 b.i.d. 2. Metoprolol 25 daily. 3. Lisinopril 10 daily. 4. Imdur 60 daily. 5. Lipitor 40 at bedtime. 6. Aspirin 81 daily. REVIEW OF SYSTEMS: No easy bruising. No bright red blood per rectum or hematuria. 10-point system unremarkable. PHYSICAL EXAMINATION: GENERAL: Pale gentleman, in no acute distress. VITAL SIGNS: Blood pressure is 95/59. NECK: Showed no jugular venous distention. LUNGS: Clear to auscultation. HEART: Regular rate and rhythm. Normal S1 and S2. 2/6 systolic murmur. ABDOMEN: Nondistended. EXTREMITIES: Showed no edema. VASCULAR: Radial pulses are 2+. LABORATORY RESULTS: Sodium is 132, potassium 4.3, chloride 104, bicarbonate 21, BUN 18, creatinine 0.117, and glucose is 245. His troponin was 1.5. White blood cell count is 3.1, hemoglobin 8.8, hematocrit 26.3, and his platelets are 51. Electronic ventricular pacemaker. IMPRESSION: 1. Chest pain, suggestive of angina. 2. Severe coronary artery disease. 3. History of coronary artery bypass graft surgery. 4. History of aortic valve replacement. 5. Severe pancytopenia. 6. Hypertension. 7. Parkinson disease. This gentleman presents with a non-Q-wave myocardial infarction. He also is markedly anemic. He has been transfused. His Plavix had recently been discontinued due to his probable anemia and thrombocytopenia. At this time, would continue the patient on medical therapy and , would continue to transfuse this patient who most likely has myelodysplastic syndrome. Would continue to monitor his Hgb.. We will follow this patient with you through his hospitalization. Job ID: [id number] JAYY
[2019-10-11] MEDS ORDERED: Atorvastatin Calcium 40 MG TAB PO SCH (21:00)
[2019-10-11] MEDS ORDERED: Lisinopril 10 MG TAB PO SCH (21:00)
--- NOTE | 2019-10-11 23:27 | CON ---
DATE OF CONSULTATION: HISTORY OF PRESENT ILLNESS: Mr. Puri is an 84-year-old male who was admitted on 10/10/19 for chest pain. CBC showed WBC 4300, hemoglobin 9.6, MCV 106, and platelet count of 65,000, the reason forthis consultation. The patient had a low platelet count going all the way back to June 2017 when his platelet count was 94,000 and all the subsequent platelet counts have been towards the lower side. Hemoglobin was 11.7 in April and has declined significantly since then. His WBCs have been low starting June 2017 when it was 4000. The patient has been taking B12 injections weekly for about 6 weeks. PAST MEDICAL HISTORY: The patient was diagnosed with Parkinson's disease about a year ago. Additional possibilities include hypertension, coronary artery disease, coronary artery stenosis, peripheral vascular disease, history of TIA, and aortic insufficiency. Patient had open-heart surgery in the past. HOME MEDICATIONS: Atorvastatin, aspirin, vitamin B12, Plavix, isosorbide, lisinopril, metoprolol, Ranexa, and p.r.n. nitroglycerin. PAST SURGICAL HISTORY: Include pacemaker implantation and coronary artery bypass graft surgery in 2018. SOCIAL HISTORY: He is a former smoker. He lives in [place] and does not smoke and does not drink. PHYSICAL EXAMINATION: Not performed. LABORATORY DATA: CBC today showed WBC of 3100, hemoglobin 8.8 g, and platelet count of 51,000. MCV 106. Differential showed 65.3% neutrophils, 22.5% lymphocytes, 9.6% monocytes. Chemistry profile showed pertinent findings of elevated glucose of 145, calcium 7.9, serum iron 12, TIBC 254. Serum ferritin 323. ASSESSMENT AND DISCUSSION: This patient likely has a myelodysplastic syndrome based on high MCV. The patient is DNR and he was very certain that he did not want additional studies including blood test. I had a lengthy discussion with him and explained that there are some simpler measures that can improve his anemia such as weekly Procrit. We discussed the options of not doing anything, which he preferred. Second would be to do some simple blood tests and if we still end up with the diagnosis of myelodysplastic syndrome, then we could try Procrit. The next option will be to give blood transfusion whenever he develops symptomatic anemia. If the Procrit worked, it could have eliminated the need for blood transfusion. However, the patient really did not want to do anything and for this reason, no tests were ordered. He will not be followed by our service. If he changes his mind, please let us know. Job ID: [id number]
[2019-10-12 07:45] VITALS: BP 110/54; TEMP 99.3
--- NOTE | 2019-10-12 08:00 | PDOC.HOSPP ---
- Subjective Encounter Date: 10/11/19 Subjective: Patient is doing well. He has not pain now. He has some chronic, recurrent pain for a long while. - Objective Vital Signs & Weight: Vital Signs (12 hours) Temp Pulse Resp BP BP Pulse Ox 10/12/19 07:41 99.3 F 76 16 110/54 L 98 10/12/19 03:30 98.2 F 77 14 109/57 L 98 Weight Admit Weight 165 lb Weight 165 lb 6.464 oz I&O: 10/11/19 10/12/19 10/13/19 06:59 06:59 06:59 Intake Total 450 480 Balance 450 480 Result Diagrams: 10/11/19 04:11 10/11/19 04:11 Hospitalist ROS - Medication Medications: Active Medications Generic Name Dose Route Start Last Admin Trade Name Freq PRN Reason Stop Dose Admin Aspirin 81 mg 10/11/19 09:00 10/11/19 08:14 Aspirin Chewable PO 81 mg DAILY LORRAINE Administration Atorvastatin Calcium 40 mg 10/11/19 21:00 10/11/19 21:04 Lipitor PO 40 mg HS LORRAINE Administration Isosorbide Mononitrate 60 mg 10/11/19 09:00 10/11/19 08:15 Imdur PO 60 mg DAILY LORRAINE Administration Metoprolol Succinate 25 mg 10/11/19 21:00 10/11/19 21:03 Toprol Xl PO 25 mg BID LORRAINE Administration Nitroglycerin 0.4 mg 10/10/19 23:57 10/11/19 10:08 Nitrostat SL 0.4 mg ASDIR PRN Administration Chest Pain Pantoprazole Sodium 40 mg 10/11/19 09:00 10/11/19 08:15 Protonix PO 40 mg DAILY LORRAINE Administration Ranolazine 1,000 mg 10/11/19 09:00 10/11/19 21:03 Ranexa PO 1,000 mg BID LORRAINE Administration - Exam General Appearance: NAD, awake alert Eye: PERRL, anicteric sclera Neck: supple, symmetric, no JVD, no thyromegaly, no lymphadenopathy, no carotid bruit Heart: RRR, no murmur, no gallops, no rubs, normal peripheral pulses Respiratory: CTAB, no wheezes, no rales, no ronchi, normal chest expansion, no tachypnea, normal percussion Gastrointestinal: soft, non-tender, non-distended, normal bowel sounds, no palpable masses, no hepatomegaly, no splenomegaly, no bruit Extremities: no cyanosis, no clubbing, no edema Skin: normal turgor Neurological: no focal deficits Musculoskeletal: normal tone Psychiatric: normal affect, normal behavior, A&O x 3 Hosp A/P (1) Myocardial infarction Code(s): I21.9 - ACUTE MYOCARDIAL INFARCTION, UNSPECIFIED Status: Acute (2) Pancytopenia Code(s): D61.818 - OTHER PANCYTOPENIA Status: Acute (3) Angina pectoris Code(s): I20.9 - ANGINA PECTORIS, UNSPECIFIED Status: Acute (4) CAD (coronary artery disease) Code(s): I25.10 - ATHSCL HEART DISEASE OF CIRCLE CORONARY ARTERY W/O ANG PCTRS Status: Chronic (5) Dyslipidemia Code(s): E78.5 - HYPERLIPIDEMIA, UNSPECIFIED Status: Chronic (6) H/O aortic valve replacement Code(s): Z95.2 - PRESENCE OF PROSTHETIC HEART VALVE Status: Chronic (7) Hypertension Code(s): I10 - ESSENTIAL (PRIMARY) HYPERTENSION Status: Chronic - Plan Patient has pancytopenia with secondary demand ischemia and ID type 2. He has known CAD and has declined intervention in the past. He has been transfused and will have consultations from Cards and Heme/Onc today. He is currently stable and Hgb is adequate. He is pain free. No change in plan for now.
--- NOTE | 2019-10-12 08:04 | PDOC.EVN ---
Event Note - Event Note Event Note: Patient was revisited on the evening of 10/10. He had notified the nurse that he did not want any interventions. He preferred to go home with hospice. This was confirmed with the patient. CM consult was obtained. He does not want to initiate hospice at discharge, but will have the information for him to pursue this after discharge and after talking with his family and PCP. The plan will be for DC on the morning of 10/11.
[2019-10-12] MEDS: Aspirin Chewable 81 MG TAB PO SCH (08:15)
--- NOTE | 2019-10-13 04:27 | DIS ---
DATE OF ADMISSION: 10/10/2019 DATE OF DISCHARGE: 10/12/2019 DISCHARGE DIAGNOSES: 1. Chest pain. 2. [id number] myocardial infarction, type 2. 3. Pancytopenia. 4. Parkinson disease. 5. Coronary artery disease. 6. Hypertension. 7. Hyperlipidemia. HISTORY OF PRESENT ILLNESS: The patient is an 84-year-old male who initially presented to the emergency department at an outside facility reporting chest pain. The patient has a history of known significant coronary artery disease and had previously followed with Dr. Dixon. He had discussed potential interventions in the past as the patient has had a prior CABG. However, there was no desire to pursue further intervention on the patient's part. On this occasion, the patient was noted to have significant anemia and pancytopenia with a slight bump in his troponins as well. The patient was then transferred to this facility and admitted to the Hospitalist Service. HOSPITAL COURSE: The patient was placed on a telemetry. He had serial enzymes. Had consultation with Cardiology and Hematology. Hematology felt the patient likely had a myelodysplastic syndrome, and Cardiology felt like his anemia was likely the source of his chest pain and NSTEMI type 2. The patient was clear that he had no desire to pursue any type of interventions. In fact he made a decision that he would prefer to go home and consider hospice care. His had been on hospice care previously and he was well familiar. I did ask Case Management to speak to him, and the patient decided he did not want to transition to hospice care at the time of discharge, but preferred to go home, and have conversation with his PCP and his children and then make a decision. However, she was clear that he did not want to do any further workup for evaluation or treatment on this particular occasion. Therefore, he was felt appropriate for discharge. DISCHARGE EXAMINATION: VITAL SIGNS: At the time of discharge, temperature was 99.3, pulse 76, respirations 16, O2 saturation 98% on room air, blood pressure 110/54. GENERAL: He was awake and alert, very pleasant, very cooperative. HEART: Regular. LUNGS: Clear. ABDOMEN: Benign. EXTREMITIES: Had no edema. DISPOSITION: The patient is discharged to home. ACTIVITY: As tolerated. He will be on a heart healthy diet. HOME MEDICATIONS: He will continue his home medications to include, 1. Multivitamin one p.o. daily. 2. Aspirin 81 mg daily. 3. Metoprolol 25 mg daily. 4. Isosorbide 60 mg daily. 5. Atorvastatin 40 mg p.o. at bedtime. 6. Lisinopril 10 mg at bedtime. 7. Plavix 75 mg daily. 8. Nitroglycerin 0.4 one sublingual p.r.n. chest pain. 9. Ranexa 1000 mg b.i.d. FOLLOWUP: He is to follow up with Dr. Rolle and call to make an appointment if he chooses to do so and follow up with Carlos Fields, his PCP. He can return to the hospital anytime he has the need to do so. TIME SPENT: Total time in discharge activities was less than 30 minutes. Job ID: [id number]
== END 2019-10-12 10:50 | disposition home or self-care (01) | DRG 808 ==
LOC: 2NO 19:45 → OBSVTOIN 22:16
PROVIDERS: ADMIT Internal Medicine; ATTEND Internal Medicine
DX: D61.818 Other pancytopenia (principal); I21.A1 Myocardial infarction type 2; D46.9 Myelodysplastic syndrome, unspecified; G20 Parkinson's disease; Z66 Do not resuscitate; Z51.5 Encounter for palliative care; I25.10 Atherosclerotic heart disease of native coronary artery without angina pectoris; I10 Essential (primary) hypertension; I73.9 Peripheral vascular disease, unspecified; I35.1 Nonrheumatic aortic (valve) insufficiency; E78.5 Hyperlipidemia, unspecified; D69.6 Thrombocytopenia, unspecified; Z95.1 Presence of aortocoronary bypass graft; Z86.73 Personal history of transient ischemic attack (TIA), and cerebral infarction without residual deficits; Z95.0 Presence of cardiac pacemaker; Z95.2 Presence of prosthetic heart valve; Z87.891 Personal history of nicotine dependence
CPT/HCPCS: 36415; 80048; 80053; 82553; 82728; 83540; 83550; 84484; 85025